=== PATIENT | female | born 1950 | race Caucasian/White ===

== ENCOUNTER 2018-09-16 11:39 | Outpatient (CLI) | payer MEDICARE, MEDICAID ==
[~2018-09-16 11:39] MED LIST: REGADENOSON 0.4 MG/5 ML SYRINGE ONE
== END 2018-09-16 23:59 | disposition home or self-care (01) ==
LOC: CVU 11:39 → CFH 23:59
PROVIDERS: ATTEND Internal Medicine Cardiovascular Disease
DX: Z01.818 Encounter for other preprocedural examination (principal); I05.9 Rheumatic mitral valve disease, unspecified; I25.10 Atherosclerotic heart disease of native coronary artery without angina pectoris; I73.9 Peripheral vascular disease, unspecified
CPT/HCPCS: 0399T; 78452; 93017; 93306; A9502; J2785